=== PATIENT | female | born 1995 | race Caucasian/White ===

== ENCOUNTER 2023-11-30 22:35 | Inpatient (IN) ==
[2023-11-30] MEDS ORDERED: LIDOCAINE 1% LOCAL 20 ML VIAL INFIL PRN (23:47)
[2023-12-01] MEDS: LACTATED RINGER'S 1,000 ML IV PRN (00:15)
[2023-12-01 00:18] LABS: Hematocrit (blood only) 33.1 % (37.0-47.0); Hemoglobin 10.6 g/dl (12.0-16.0); Mean Corpuscular Hemoglobin 28.4 pg (25.0-34.0); Mean Corpuscular Volume 88.7 fL (80.0-100.0); Mean Platelet Volume 10.7 fL (9.4-12.4); Platelet Count 190 K/uL (130-400); RDW Coefficient of Variation 14.6 % (11.5-14.5); Red Blood Count 3.73 M/uL (4.20-5.40); White Blood Count 7.99 K/ul (4.8-10.8)
[2023-12-01] MEDS: fentANYL 2 MCG/ML BUPIVacaine 0.125%-NSS 100ML BAG ONE (01:13)
[2023-12-01] MEDS: BUPIVACAINE 0.25% PF 30 ML VIAL ONE (01:14)
[2023-12-01] MEDS: LIDOCAINE 2%/EPINEPHRINE 1:200,000 20 ML PF ONE (01:14)
[2023-12-01] MEDS ORDERED: NALOXONE HCL 0.4 MG/1 ML VIAL/CARP IV PRN (01:19)
[2023-12-01] MEDS ORDERED: NALOXONE HCL 1 MG in SODIUM CHLORIDE 0.9% 1,000 ML IV PRN (01:19)
[2023-12-01] MEDS ORDERED: fentaNYL citrate PF 100 MCG/2 ML VIAL EPI PRN (01:19)
[2023-12-01] MEDS ORDERED: BUPIVACAINE 0.25% PF 30 ML VIAL EPI PRN (01:19)
[2023-12-01] MEDS ORDERED: NALBUPHINE HCL 5 MG in SYRINGE 0 ML IV PRN (01:19)
[2023-12-01] MEDS ORDERED: LIDOCAINE 2% MPF LOCAL 5 ML VIAL EPI PRN (01:19)
[2023-12-01] MEDS ORDERED: SODIUM CHLORIDE 0.9% PF INJ 10 ML VIAL EPI PRN (01:19)
[2023-12-01] MEDS ORDERED: ePHEDrine sulfate 50 MG/ML AMP IV PRN (01:19)
[2023-12-01] MEDS ORDERED: ROPIVACAINE 0.5% PF 5 MG/ML 20 ML VIAL EPI PRN (01:19)
[2023-12-01] MEDS ORDERED: diphenhydrAMINE 50 MG/ML VIAL IV PRN (01:19)
[2023-12-01] MEDS ORDERED: ONDANSETRON INJ 2 MG/ML 2 ML VIAL IV PRN (01:19)
--- NOTE | 2023-12-01 01:19 | Anesthesiology Consultation ---
Date of Service December 01, 2023 Assessment & Plan Chart Review Chart Review: Patient NOT seen in Pre Admission Testing and Acceptable Risk for Labor Epidural Consults Requested none ASA ASA2 Proposed Anesthesia Anesthesia Type: Labor Epidural Risk / Benefits Reviewed With: PT / POA / Parent / Guardian, Accepts Plan and Informed Consent Obtained History Height/Weight Height: 5 ft 6 in Weight: 78.925 kg Allergies Allergy/AdvReac Type Severity Reaction Status Date / Time amoxicillin Allergy Itching Verified 11/27/23 08:46 Medications Home Medications Medication Instructions Recorded Confirmed Last Taken diphenhydramine HCl 25 mg capsule 25 mg DAILY PRN Allergy Symptoms 11/30/23 11/30/23 Unknown (Benadryl) loratadine 10 mg tablet (Claritin) 10 mg PO DAILY PRN Allergy Symptoms 11/30/23 11/30/23 11/30/23 vits [id number] fum 1 tab DAILY 11/30/23 11/30/23 11/30/23 27 mg iron-folic acid 800 mcg tablet ( Vitamin) sertraline 20 mg/mL oral 50 mg PO DAILY 11/30/23 11/30/23 11/30/23 concentrate (Zoloft) Active Medications Generic Name Dose Route Start Last Admin Trade Name Freq PRN Reason Stop Dose Admin Lactated Ringer's 1,000 mls @ 125 mls/hr 11/30/23 23:47 12/01/23 01:05 Lr IV 12/02/23 23:46 125 mls/hr .Q8H PRN Infusion L&D Protocol Protocol Past Medical History Medical History Depression with anxiety Varicella vaccination Exercise / Class Metabolic Activity II 4-5 Yardwork/Stairs/Walk up hill Past Family History Family History Grandfather (Paternal) Colorectal cancer Grandmother (Maternal) Lupus Brother Congenital heart defect Denies family history of Ovarian cancer Breast cancer Past Surgical History Surgical History S/P wisdom tooth extraction Past Anesthesia History No Hx of Anesthesia Complications and No Family Hx of Anesthesia Complications History of PONV No Hx of PONV and No Hx of Motion Sickness Social History Smoking Status: Never smoker Do You Dip or Chew Tobacco: No Hx Alcohol Use: No Hx Substance Use: No Physical Exam Vital Signs Last Vital Signs Temp 36.8 C 11/30/23 22:51 Pulse 83 12/01/23 01:16 Resp 18 11/30/23 22:51 BP 106/62 12/01/23 01:16 Pulse Ox 97 12/01/23 01:16 ENMT Mouth: no dentition abnormality Thyromental Distance: > or= 3.5 Finger Breadths Mallampati Class: II Neck normal visual inspection Respiratory normal respiratory effort Auscultation: lungs clear to auscultation bilaterally Cardiovascular Rate/Rhythm: regular rate and regular rhythm Psychiatric Orientation: alert Testing Laboratory Results 12/01/23 00:02
[2023-12-01] MEDS: SODIUM CHLORIDE 0.9% PF INJ 10 ML VIAL ONE (01:28)
[2023-12-01] MEDS: LIDOCAINE 2%/EPINEPHRINE 1:200,000 20 ML PF EPI STA (01:54)
[2023-12-01] MEDS: SODIUM CHLORIDE 0.9% PF INJ 10 ML VIAL EPI STA (01:54)
[2023-12-01] MEDS: ePHEDrine sulfate 50 MG/ML AMP ONE (01:54)
[2023-12-01] MEDS: BUPIVACAINE 0.25% PF 30 ML VIAL EPI STA (01:54)
[2023-12-01] MEDS: fentaNYL citrate PF 100 MCG/2 ML VIAL ONE (03:17)
[2023-12-01] MEDS: fentaNYL citrate PF 100 MCG/2 ML VIAL EPI STA (03:17)
[2023-12-01] MEDS: fentANYL 2 MCG/ML BUPIVacaine 0.125%-NSS 100ML BAG EPI PRN (09:54)
[2023-12-01] MEDS: OXYTOCIN 30 UNITS/NSS 30 UNITS/500 ML BAG IV PRN ×2 (10:16→11:34)
--- NOTE | 2023-12-01 10:25 | Delivery Summary ---
Vaginal Delivery Summary Date of Service December 01, 2023 Vaginal Delivery Summary Spontaneous vaginal delivery the patient arrived in active labor presenting with her second baby group B strep negative uncomplicated requested epidural artificial rupture membranes for clear fluid afterwards she then pushed delivering a baby in occiput anterior position with clear fluid no nuchal cord gentle traction on the baby to deliver baby without difficulty there gentle traction on the posterior latissimus dorsi to deliver baby under the pubis live vigorous male infant Cord clamped and cut cord gases obtained cord blood obtained placenta removed gentle traction IV Pitocin started uterine tone improved there was no tearing sponge instrument counts correct [facility] Vaginal Delivery Charge Delivery Type Details:
[2023-12-01] MEDS ORDERED: DIPHTHER/TETAN/PERTUS Vaccine (Tdap, Adol/Adult) 0.5mL IM ONE (10:29)
[2023-12-01] MEDS ORDERED: bisacodyL 10 MG SUPP PR PRN (10:29)
[2023-12-01] MEDS ORDERED: HYDROCORTISONE ACETATE 25 MG SUPP PR PRN (10:29)
[2023-12-01] MEDS ORDERED: BENZOCAINE 20% SPRY 85 APPLN/85 GM CAN EXT PRN (10:29)
[2023-12-01 10:37] LABS: Base Excess Cord Arterial Bld 1.4 mEq/L (-9-1.8); CO2 Cord Arterial Blood 60 mmHg (39.1-73.5); HCO3 Cord Arterial Blood 30 mmol/L (19.7-28.5); Oxygen Sat Cord Arterial Blood < 60.0 % (<60); PO2 Cord Arterial Blood < 20 mmHg (4.1-31.7)
[2023-12-01 10:39] LABS: Base Excess Cord Venous Blood 0.3 mEq/L (-7.7-1.9); Cord Venous Blood HCO3 27 mmol/L (18.4-26.8); Cord Venous Blood PCO2 48 mmHg (30.4-57.2); Cord Venous Blood PO2 < 20 mmHg (14.1-43.3); Cord Venous Blood pH 7.35 (7.20-7.44)
[2023-12-01 10:43] LABS: O2 Saturation Cord Venous Bld < 60.0 % (<68)
[2023-12-01] MEDS: IBUPROFEN 600 MG TAB PO PRN (13:19)
[2023-12-01] MEDS: ACETAMINOPHEN 325 MG TAB PO PRN (20:48)
[2023-12-01] MEDS: DOCUSATE SODIUM 100 MG CAP PO SCH (20:56)
--- NOTE | 2023-12-02 06:17 | Obstetrical Progress Note ---
Date of Service <Tang Back MD - Last Filed: 12/02/23 07:24> December 02, 2023 Assessment & Plan <Tang Back MD - Last Filed: 12/02/23 07:24> (1) (spontaneous vaginal delivery): Plan 28 yo , status post on 11/30 - Pt doing well clinically. Feels well today. Eating well, voiding well, ambulating well. Pain well controlled with PRN pain meds. - Routine care -- OOB, ambulation, diet progression as tolerated. - Patient has a few questions for remediation bioanalytics consultant before leaving today. Vital Signs reviewed and WNL. (Tmax at 37.0) Hemoglobin Reviewed. 10.6 (11/30) 9.6 (today). Blood Type: A+, GBS-, Rubella Immune. Encourage ambulation, monitor and control pain with Motrin PRN, resume regular diet, monitor lochia. Breast feeding encouraged. After discharge will have 6 week follow-up with Dr. Arreguin. Pt counselled on discharge instructions. <Ani Arreguin MD, FACOG - Last Filed: 12/02/23 18:28> (1) (spontaneous vaginal delivery): Subjective <Tang Back MD - Last Filed: 12/02/23 07:24> Ambulation: ambulating normally Voiding: no voiding problems Passing Gas:: Yes Diet Tolerance:: regular diet Lochia:: Large Feeding Type:: breast feeding (strictly breast feeding; pump some also) Current Pain Level(1-10): 3 (5 or 6/10 during ; lower AP, cramping- like) Constitutional: no fever or no chills Respiratory: no cough, no chest congestion, no dyspnea or no wheezing Cardiovascular: no chest pain or no palpitations Gastrointestinal: no abdominal pain, no nausea, no vomiting, no constipation or no diarrhea/loose stools Genitourinary (female): + dysuria (a little bit but relieved by soapy water); no urinary frequency or no urinary urgency Integumentary: no rash or no new lesions Neurologic: no tingling or no numbness Physical Exam <Tang Back MD - Last Filed: 12/02/23 07:24> Constitutional WD/WN, vitals as above Respiratory normal respiratory effort, lungs clear to auscultation Cardiovascular RRR, no murmur, no edema Extremities: normal capillary refill; no calf tenderness Gastrointestinal (Abdomen) normal bowel sounds, soft, nontender, no hepatosplenomegaly fundus right below the umbilicus Psychiatric A+Ox3, euthymic affect Results & Data <Tang Back MD - Last Filed: 12/02/23 07:24> Vital Signs (Past 12 Hours) Vital Signs Temp Pulse Resp BP Pulse Ox O2 Del Method 12/02/23 03:20 36.5 C 71 16 98/63 L 98 Room Air 12/01/23 23:20 37.0 C 71 16 108/71 97 Room Air 12/01/23 19:30 36.7 C 84 18 107/65 98 Room Air Supervising Physician <Ani Arreguin MD, FACOG - Last Filed: 12/02/23 18:28> Co-Signing Physician Notes Resident Physician Supervision Note: I was present with [Yassine] during the history and exam. I discussed the case with the resident and agree with the findings and plan as documented in the note. Any exceptions or clarifications are listed here: [None] Documented By: Ani Arreguin MD, FACOG
[2023-12-02 06:18] LABS: Hematocrit (blood only) 29.9 % (37.0-47.0); Hemoglobin 9.6 g/dl (12.0-16.0); Mean Corpuscular Hemoglobin 28.7 pg (25.0-34.0); Mean Corpuscular Hgb Conc 32.1 g/dL (32.0-36.0); Mean Corpuscular Volume 89.3 fL (80.0-100.0); Mean Platelet Volume 11.1 fL (9.4-12.4); Platelet Count 182 K/uL (130-400); RDW Coefficient of Variation 14.8 % (11.5-14.5); RDW Standard Deviation 48.2 fL (36.4-46.3); Red Blood Count 3.35 M/uL (4.20-5.40); White Blood Count 8.05 K/ul (4.8-10.8)
[2023-12-02] MEDS: PRENATAL VITAMIN 1 TAB PO SCH (07:35)
[2023-12-02] MEDS: LORATADINE 10 MG TAB PO PRN (07:53)
[2023-12-02] MEDS: SERTRALINE HCL 50 MG TABLET PO SCH (10:33)
[2023-12-02] MEDS ORDERED: bisacodyL 5 MG TABEC PO SCH (20:00)
== END 2023-12-02 11:55 | disposition home or self-care (01) | DRG 807 ==
LOC: OPB 22:35 → 4S1 22:40 → 4E2 12-01 13:19